=== PATIENT | male | born 1975 | race Caucasian/White ===

== ENCOUNTER 2020-09-02 10:44 | Emergency (ER) | payer OTHER ==
[~2020-09-02] VITALS: Ht 172.7 cm; Wt 127.3 kg
[~2020-09-02 10:44] MED LIST: NOCURR
[2020-09-02] MEDS ORDERED: TETRACAINE HCL VISCOUS 0.5% 0.6 ML OPHTHALMIC SOLUTION OD ONE (12:45)
[2020-09-02] MEDS ORDERED: TETRACAINE HCL/PF 0.5% 4 ML OPHTHALMIC SOLUTION OD ONE (13:15)
[2020-09-02] MEDS ORDERED: NEOMYCIN/BACITRACIN/POLYMYXIN/HYDROCORT 3.5 GM OPHTHALMIC OINTMENT OD ONE (14:00)
[2020-09-02 14:35] VITALS: BP 137/89
== END 2020-09-02 14:45 | disposition home or self-care (01) ==
LOC: EMS 10:44
DX: T26.11XA Burn of cornea and conjunctival sac, right eye, initial encounter (principal); F17.210 Nicotine dependence, cigarettes, uncomplicated; X10.2XXA Contact with fats and cooking oils, initial encounter; Y93.89 Activity, other specified; Y92.89 Other specified places as the place of occurrence of the external cause; Y99.0 Civilian activity done for income or pay
CPT/HCPCS: 99283

== ENCOUNTER 2021-07-18 10:58 | Emergency (ER) | payer MEDICAID, OTHER ==
[~2021-07-18] VITALS: Ht 172.7 cm; Wt 127.2 kg
[2021-07-18 10:59] VITALS: BP 164/93
== END 2021-07-18 12:45 | disposition home or self-care (01) ==
LOC: EMS 11:01
DX: U07.1 COVID-19 (principal); F17.210 Nicotine dependence, cigarettes, uncomplicated
CPT/HCPCS: 99283

== ENCOUNTER 2022-07-01 21:02 | Emergency (ER) | payer MEDICAID ==
[~2022-07-01] VITALS: Ht 170.2 cm; Wt 127.3 kg
[2022-07-01 21:06] VITALS: BP 157/92
== END 2022-07-01 22:53 | disposition left against medical advice (07) ==
LOC: EMS 21:07
DX: R10.9 Unspecified abdominal pain (principal); R11.2 Nausea with vomiting, unspecified; R19.7 Diarrhea, unspecified; Z53.21 Procedure and treatment not carried out due to patient leaving prior to being seen by health care provider